=== PATIENT | male | born 1970 | race Caucasian/White ===

== ENCOUNTER 2016-08-03 03:52 | Emergency (ER) | payer OTHER ==
[~2016-08-03] VITALS: Ht 167.6 cm; Wt 88.5 kg
[~2016-08-03 03:52] MED LIST: ASPIRIN CHILDRE81 MG PO; FLEXERIL PO; MOBIC15 M1 PO; OXYCODONE5 M1 PO; PERCOCET 5-3251 EACH PO; TRAMADOL HCL50 M1 PO
--- NOTE | 2016-08-03 04:38 | ED GENERAL ADULT ---
History of Present Illness General Chief Complaint: Low Back Pain/Injury Stated Complaint: LOWER BACK PAIN AND RIB PAIN Source: patient, old records Exam Limitations: no limitations Vital Signs & Intake/Output Vital Signs & Intake/Output Vital Signs Date Time Temp Pulse Resp B/P Pulse O2 O2 Flow FiO2 Ox Delivery Rate 08/03 0402 98.2 64 18 135/95 98 Room Air Allergies Coded Allergies: gabapentin (BLURRY VISION 12/27/15) olanzapine (From ZYPREXA) ("BUGS UNDER SKIN" SENSATION 12/27/15) Reconcile Medications Baclofen 10 MG TABLET 1 TAB PO TIDPRN PRN muscle spasm/strain [FLEXERIL] 5 MG 1 TAB PO TID PRN PAIN Ibuprofen 600 MG TABLET 1 TAB PO Q6PRN PRN pain with food Meloxicam (Mobic) 15 MG TABLET 1 TAB PO DAILY PAIN Oxycodone HCl/Acetaminophen (Percocet 5-325 MG Tablet) 1 EACH TABLET 1-2 TAB PO Q6P PRN PAIN Tramadol HCl 50 MG TABLET 1 TAB PO BID PRN BREAKTHROUGH PAIN Triage Note: PT TO ED C/O EXACERBATION OF LOW BACK PAIN AND PAIN UNDER RT RIBS THAT NOW GOES TO GROIN. HAD INJURY TO RT RIBS 9 MONTHS AGO. DENIES UTI S/S. STATES IS UNDER A LOT OF STRESS "I'M NOT SLEEPING WELL" Triage Nurses Notes Reviewed? yes Onset: Last week Duration: day(s):, constant, continues in ED, getting worse, waxing and waning Timing: recent history Injury Environment: home Severity: moderate Modifying Factors: Improves With: rest. Worsens With: movement. Associated Symptoms: back pain HPI: 11 months prior to admission patient complains of injuring his right rib cage with episodic pain prescription as sharp [id number] worse with movement palpation. Workup was significant for fatty liver and elevated it function tests. 5 days prior to admission he complains of recurrent and worsening right upper quadrant chest discomfort and chronic low back pain. He denies fever chills nausea vomiting diarrhea cough shortness of breath headache dysuria rash bleeding. Past History Travel History Traveled to [place] past 21 day No Medical History Any Pertinent Medical History? 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 No Review of Systems Review of Systems Constitutional: Reports: no symptoms. EENTM: Reports: no symptoms. Respiratory: Reports: no symptoms. Cardiovascular: Reports: no symptoms. GI: Reports: see HPI, abdominal pain. Genitourinary: Reports: no symptoms. Musculoskeletal: Reports: see HPI, back pain. Skin: Reports: no symptoms. Neurological/Psychological: Reports: no symptoms. Hematologic/Endocrine: Reports: no symptoms. Immunologic/Allergic: Reports: no symptoms. All Other Systems: Reviewed and Negative Physical Exam Physical Exam General Appearance: well developed/nourished, alert, awake, anxious, mild distress, obese Head: atraumatic, normal appearance Eyes: Bilateral: normal appearance, PERRL, EOMI. Ears, Nose, Throat: normal pharynx, normal ENT inspection Neck: normal inspection, supple, full range of motion, no midline tenderness Respiratory: normal breath sounds, chest non-tender, no respiratory distress, quiet respiration, lungs clear Cardiovascular: regular rate/rhythm, normal peripheral pulses, norml femoral pulses equa Peripheral Pulses: 4+ carotid (R), 4+ carotid (L) Gastrointestinal: normal bowel sounds, soft, non-tender, no organomegaly Back: normal inspection, normal range of motion, no vertebral tenderness Extremities: normal inspection, normal capillary refill, normal range of motion, no edema Neurologic/Psych: no motor/sensory deficits, awake, alert, oriented x 3, normal gait, normal mood/affect, 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 Skin: intact, normal color, warm/dry Lymphatic: no anterior cervical hui Core Measures ACS in differential dx? No CVA/TIA Diagnosis: No Severe Sepsis Present: No Septic Shock Present: No Progress Differential Diagnoses I considered the following diagnoses in my evaluation of the patient: Pancreatitis pain lever chest wall pain chronic back pain Plan of Care: Orders Procedure Date/time Status LIPASE 08/03 421 Complete DIRECT BILIRUBIN 08/03 421 Complete COMPREHENSIVE METABOLIC PANEL 08/03 421 Complete CBC WITHOUT DIFFERENTIAL 08/03 421 Complete Current Medications Sig/Greta Start time Last Medication Dose Stop Time Status Admin Cyclobenzaprine HCl 10 MG ONCE ONE 08/03 629 UNVr (Flexeril 10MG Tab) 08/03 630 Laboratory Tests 08/03/160: Anion Gap 12, Estimated GFR > 60, BUN/Creatinine Ratio 21.3, Glucose 105 H, Calcium 9.7, Total Bilirubin 0.8, Direct Bilirubin 0.3, AST 27, ALT 59, Alkaline Phosphatase 99, Total Protein 7.4, Albumin 4.4, Globulin 3.0, Albumin/Globulin Ratio 1.5, Lipase 139, CBC w Diff NO MAN DIFF REQ, RBC 4.91, MCV 93.2, MCH 31.2 H, RDW 13.5, MPV 7.6, Gran % 62.4, Lymphocytes % 24.4, Monocytes % 10.3 H, Eosinophils % 2.2, Basophils % 0.7, Absolute Granulocytes 3.6, Absolute Lymphocytes 1.4, Absolute Monocytes 0.6, Absolute Eosinophils 0.1, Absolute Basophils 0, PUBS MCHC 33.5 Initial ED EKG: none Departure Departure Time of Disposition: 555 Disposition: HOME OR SELF CARE Condition: Stable Clinical Impression Primary Impression: Facet arthropathy, lumbar Secondary Impressions: Right upper quadrant pain Referrals: JANET AUGUSTE,ARABELLA Chu (PCP/Family) Departure Forms: Customer Survey General Discharge Information Prescriptions: Current Visit Scripts Baclofen 1 TAB PO TIDPRN PRN muscle spasm/strain #30 TAB Ibuprofen 1 TAB PO Q6PRN PRN pain #50 TAB with food Critical Care Note Critical Care Note Critical Care Time: non-applicable
[2016-08-03 04:42] LABS: ABSOLUTE BASOPHIL COUNT 0 /CUMM (0.0-0.2); ABSOLUTE EOSINOPHIL COUNT 0.1 /CUMM (0.0-0.7); ABSOLUTE GRANULOCYTE CT 3.6 /CUMM (1.4-6.5); ABSOLUTE LYMPH COUNT 1.4 /CUMM (1.2-3.4); ABSOLUTE MONOCYTE COUNT 0.6 /CUMM (0.10-0.60); BASOPHIL % 0.7 % (0.0-2.0); EOSINOPHIL % 2.2 % (0-5); GRANULOCYTE % 62.4 % (42.2-75.2); HEMATOCRIT 45.8 % (42-52); MEAN CORPUSCULAR HGB 31.2 PG (27.0-31.0); MEAN CORPUSCULAR HGB CONC 33.5 G/DL (33.0-37.0); MEAN CORPUSCULAR VOLUME 93.2 FL (80.0-94.0); MEAN PLATELET VOLUME 7.6 FL (7.4-10.4); PLATELET COUNT 264 /CUMM (130-400); RBC DISTRIBUTION WIDTH 13.5 % (11.5-14.5); RED BLOOD CELL CT 4.91 /CUMM (4.70-6.10); WHITE BLOOD CELL COUNT 5.7 /CUMM (4.8-10.8)
[2016-08-03] MEDS ORDERED: BACLOFEN10 M1 PO (05:56)
[2016-08-03] MEDS ORDERED: IBUPROFEN600 M1 PO (05:56)
[2016-08-03 06:27] VITALS: BP 127/84
== END 2016-08-03 06:28 ==
LOC: ERH 03:52
PROVIDERS: Emergency Medicine
DX: M47.816 Spondylosis without myelopathy or radiculopathy, lumbar region (principal); R10.11 Right upper quadrant pain
CPT/HCPCS: 96374; J1885

== ENCOUNTER 2016-09-12 00:28 | Emergency (ER) | payer OTHER ==
[~2016-09-12] VITALS: Ht 167.6 cm; Wt 90.7 kg
[~2016-09-12 00:28] MED LIST changes: +BACLOFEN10 M1 PO; +IBUPROFEN600 M1 PO
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
[2016-09-12 11:11] VITALS: BP 121/70
== END 2016-09-12 11:31 ==
LOC: ERH 00:28
DX: R45.1 Restlessness and agitation (principal); F60.9 Personality disorder, unspecified; F12.10 Cannabis abuse, uncomplicated
CPT/HCPCS: 80307; G0463